=== PATIENT | female | born 1995 | race Caucasian/White ===

== ENCOUNTER 2019-02-04 | Emergency (ER) | payer OTHER ==
[~2019-02-04] VITALS: Ht 149.9 cm; Wt 54.4 kg
[2019-02-04 00:08] VITALS: Ht 149.9 cm; Wt 54.4 kg
[2019-02-04] MEDS ORDERED: SOD CHLORIDE 0.9% 1,000 ML IV STA (02:32)
[2019-02-04] MEDS ORDERED: ONDANSETRON 4 MG INJ IV STA (02:32)
[2019-02-04 04:37] VITALS: BP 112/68; PULSE 72; RESP 18
== END 2019-02-04 04:35 | disposition home or self-care (01) ==
LOC: E/R
DX: R55 Syncope and collapse (principal)
CPT/HCPCS: 70450; 71045; 80048; 81001; 81025; 84484; 85025; 93005; J7030; 36415; 81003; 96360; 96361